=== PATIENT | male | born 1955 | race Caucasian/White ===

== ENCOUNTER → 2019-06-26 | Day surgery (SDC) | payer MEDICAID | LOC: MSO 08:05 | DX: K22.2 Esophageal obstruction (principal); R13.12 Dysphagia, oropharyngeal phase; K21.9 Gastro-esophageal reflux disease without esophagitis; E11.40 Type 2 diabetes mellitus with diabetic neuropathy, unspecified; Z79.84 Long term (current) use of oral hypoglycemic drugs; F41.9 Anxiety disorder, unspecified; F32.9 Major depressive disorder, single episode, unspecified; I10 Essential (primary) hypertension; E78.5 Hyperlipidemia, unspecified; G20 Parkinson's disease; K27.9 Peptic ulcer, site unspecified, unspecified as acute or chronic, without hemorrhage or perforation; Z79.899 Other long term (current) drug therapy; G21.19 Other drug induced secondary parkinsonism; F31.9 Bipolar disorder, unspecified; Z79.82 Long term (current) use of aspirin; Z86.010 Personal history of colon polyps | CPT/HCPCS: 00731; A4649; C1726; J2704; J7030 ==

== ENCOUNTER → 2019-08-07 | Outpatient (CLI) | payer MEDICAID | LOC: RAD 12:00 | DX: G20 Parkinson's disease (principal) ==